=== PATIENT | male | born 1975 | race African-American/Black ===

== ENCOUNTER 2016-11-30 12:12 | Emergency (ER) | payer OTHER ==
[~2016-11-30] VITALS: Ht 175.3 cm; Wt 91.3 kg
[~2016-11-30 12:12] MED LIST: CEFDINIR300 MG PO; FLEXERIL10 MG PO; MOTRIN600 MG PO; MOTRIN800 MG PO; NORCO 7.5/321 TABLET PO
[2016-11-30 13:28] LABS: HEMATOCRIT 37.7 % (38.0-50.0); MCH 29.5 PG (29.0-34.0); MCHC 34.5 G/DL (30.0-36.0); MCV 85.5 FL (86-99); MEAN PLAT.VOLUME 9.7 uM^3 (9.0-12.4); PLATELET COUNT 255 K/uL (156-360); RBC DIS.WIDTH-CV 13.4 % (11.8-14.6); RBC DIS.WIDTH-SD 42.4 % (39-53); RED BLOOD COUNT 4.41 M/uL (4.00-5.50); WHITE BLOOD COUNT 4.7 K/uL (4.1-10.2)
[2016-11-30 13:50] LABS: CHLORIDE 106 mEq/L (99-109); POTASSIUM 4.4 mEq/L (3.7-5.4); SODIUM 141 mEq/L (136-147)
[2016-11-30 13:52] LABS: GLUCOSE 91 mg/dL (70-99)
[2016-11-30 13:54] LABS: ANION GAP 9 MEQ/L (2-14); TOTAL BILIRUBIN 0.5 mg/dL (0.0-1.0)
[2016-11-30 13:56] LABS: ALKALINE PHOSPHATASE 53 IU/L (3-129); GFR ESTIMATE (CALCULATED) > 59 mL/min/
[2016-11-30 13:57] LABS: UREA NITROGEN (BUN) 15 mg/dL (9-23)
[2016-11-30 14:43] LABS: ADD MIUA? NO; BILIRUBIN NEGATIVE; BLOOD NEGATIVE; COLOR YELLOW ((YELLOW)); GLUCOSE (STRIP) NEGATIVE; KETONES NEGATIVE; LEUKOCYTES NEGATIVE; NITRITE NEGATIVE; PROTEIN (STRIP) 30; SPECIFIC GRAVITY 1.024 (1.000-1.030); UCUL ADDED? NO
[2016-11-30] MEDS ORDERED: ZOFRAN ODT4 MG PO (16:01)
[2016-11-30 17:01] VITALS: BP 132/80
== END 2016-11-30 17:03 | disposition home or self-care (01) ==
LOC: EME 12:12
DX: E86.0 Dehydration (principal); R42 Dizziness and giddiness
CPT/HCPCS: 80053; 81003; 85027; 99281; 99284